=== PATIENT | male | born 1970 | race Caucasian/White ===

== ENCOUNTER 2020-09-02 05:51 | Emergency (ER) | payer OTHER | END 2020-09-02 06:30 | disposition home or self-care (01) | LOC: ER1 05:51 | DX: S01.411A Laceration without foreign body of right cheek and temporomandibular area, initial encounter (principal); I10 Essential (primary) hypertension; E11.9 Type 2 diabetes mellitus without complications; F17.200 Nicotine dependence, unspecified, uncomplicated; I25.10 Atherosclerotic heart disease of native coronary artery without angina pectoris; Z23 Encounter for immunization; W18.49XA Other slipping, tripping and stumbling without falling, initial encounter | CPT/HCPCS: 90471; 90715; 99283 ==